=== PATIENT | male | born 1980 | race Caucasian/White ===

== ENCOUNTER 2021-02-25 19:05 | Inpatient (IN) | payer OTHER ==
[2021-02-25] MEDS ORDERED: MAGNESIUM CITRATE 300 ML BOTTLE PO PRN (22:39)
[2021-02-25] MEDS ORDERED: MAGNESIUM HYDROX 2400MG/30ML ORAL SUSPENSION 30 ML CUP PO PRN (22:39)
[2021-02-25] MEDS ORDERED: P-EPHED 60MG/TRIPROLIDI 2.5MG TABLET PO PRN (22:39)
[2021-02-25] MEDS ORDERED: ACETAMINOPHEN 325 MG TABLET (FP) PO PRN ×2 (22:39)
[2021-02-25] MEDS ORDERED: MENTHOL/PHENOL 1 EACH UD MM PRN (22:39)
[2021-02-25] MEDS ORDERED: BISMUTH SUBSALICYLATE 524 MG/30 ML PO PRN (22:39)
[2021-02-25] MEDS ORDERED: NALOXONE HCL 0.4 MG/ML VIAL IM PRN (22:39)
[2021-02-25] MEDS ORDERED: DICYCLOMINE HCL 10 MG CAPSULE PO PRN (22:39)
[2021-02-25] MEDS ORDERED: ONDANSETRON *ODT* 4 MG TABLET SL PRN (22:39)
[2021-02-25] MEDS ORDERED: NICOTINE 10 MG CARTRIDGE (INHALER) IH PRN (22:39)
[2021-02-25] MEDS ORDERED: MAG HYDROX/AL HYDROX/SIMETH 30 ML UNIT-DOSE CUP PO PRN (22:39)
[2021-02-25] MEDS ORDERED: IBUPROFEN 400 MG TABLET (FP) PO PRN (22:39)
[2021-02-25] MEDS ORDERED: guaiFENesin 200 MG/10 ML 10 ML UNIT-DOSE CUPS PO PRN (22:39)
[2021-02-25] MEDS ORDERED: NALOXONE (NARCAN) HCL 4 MG/0.1 ML SPRAY NS PRN (22:39)
[2021-02-26] MEDS ORDERED: methaDONE HCL 10 MG TABLET (FOR DETOX USE ONLY) PO ONE ×2 (05:21→10:00)
[2021-02-26] MEDS ORDERED: clonazePAM 0.5 MG ODT TABLETS SL PRN (05:21)
[2021-02-26 05:27] VITALS: BMI 20.9
[2021-02-26] MEDS: NICOTINE 14 MG/24 HOURS TOPICAL PATCH TD SCH (09:41)
[2021-02-26] MEDS: PRENATAL VITAMINS W/ FOLIC ACID TABLET (FP) PO SCH (09:41)
[2021-02-26 11:01] LABS: HEMATOCRIT 37.7 % (35.4-49); HEMOGLOBIN 12.5 GM/dL (11.7-16.9); MCH 28.7 pg (25.7-33.7); MCHC 33.2 g/dl (32.0-35.9); MEAN CELL VOLUME 86.6 fl (80-96); MEAN PLT VOLUME 9.5 fl (7.5-11.1); PLATELET COUNT 361 10^3/uL (134-434); RBC 4.35 M/mm3 (4.00-5.60); RDW 15.5 % (11.9-15.9); WHITE BLOOD COUNT 7.6 K/mm3 (4.0-10.0)
[2021-02-26 11:12] LABS: ALBUMIN 2.8 g/dl (3.4-5.0); BLOOD UREA NITROGEN 12.1 mg/dL (7-18)
[2021-02-26 11:14] LABS: CREATININE 0.8 mg/dL (0.55-1.3)
[2021-02-26 11:16] LABS: BILIRUBIN,TOTAL 0.5 mg/dL (0.2-1); TOT PROT 7.1 g/dl (6.4-8.2)
[2021-02-26] MEDS ORDERED: MELATONIN 5 MG TABLETS PO SCH (22:00)
[2021-02-26] MEDS: THIAMINE HCL 100 MG TABLET (FP) PO SCH (22:06)
[2021-02-26] MEDS: MELATONIN 5 MG TABLETS PO SCH (22:06)
[2021-02-26] MEDS: cloNIDine HCL 0.1 MG TABLET PO PRN (22:06)
[2021-02-27] MEDS: cloNIDine HCL 0.1 MG TABLET PO PRN (03:02)
[2021-02-27] MEDS ORDERED: methaDONE HCL 10 MG TABLET (FOR DETOX USE ONLY) ONE (09:01)
[2021-02-27] MEDS: PRENATAL VITAMINS W/ FOLIC ACID TABLET (FP) PO SCH (10:23)
[2021-02-27] MEDS: NICOTINE 14 MG/24 HOURS TOPICAL PATCH TD SCH (10:25)
[2021-02-27] MEDS: diazePAM 5 MG TABLET PO PRN ×3 (10:27→22:20)
[2021-02-27] MEDS: THIAMINE HCL 100 MG TABLET (FP) PO SCH (22:20)
[2021-02-27] MEDS: MELATONIN 5 MG TABLETS PO SCH (22:21)
[2021-02-28] MEDS ORDERED: methaDONE HCL 10 MG TABLET (FOR DETOX USE ONLY) PO ONE (10:00)
[2021-02-28] MEDS: PRENATAL VITAMINS W/ FOLIC ACID TABLET (FP) PO SCH (10:15)
[2021-02-28] MEDS: diazePAM 5 MG TABLET PO PRN ×3 (10:17→22:24)
[2021-02-28] MEDS: NICOTINE 14 MG/24 HOURS TOPICAL PATCH TD SCH (10:19)
[2021-02-28 14:33] LABS: BLOOD UREA NITROGEN 10.7 mg/dL (7-18); CALCIUM 9.2 mg/dL (8.5-10.1)
[2021-02-28 14:36] LABS: CREATININE 0.8 mg/dL (0.55-1.3)
[2021-02-28 14:38] LABS: BILIRUBIN,TOTAL 0.7 mg/dL (0.2-1); TOT PROT 8.1 g/dl (6.4-8.2)
[2021-02-28 14:42] LABS: INR 1.1 (0.83-1.09); PROTHROMBIN TIME (PATIENT) 13.5 SEC (9.7-13.0)
[2021-02-28] MEDS: METHOCARBAMOL 500 MG TABLET PO PRN (16:23)
[2021-02-28] MEDS: cloNIDine HCL 0.1 MG TABLET PO PRN (16:23)
[2021-02-28] MEDS: THIAMINE HCL 100 MG TABLET (FP) PO SCH (22:24)
[2021-02-28] MEDS: MELATONIN 5 MG TABLETS PO SCH (22:25)
[2021-03-01] MEDS ORDERED: methaDONE HCL 10 MG TABLET (FOR DETOX USE ONLY) ONE (08:39)
[2021-03-01] MEDS: diazePAM 5 MG TABLET PO PRN (08:40)
[2021-03-01] MEDS: METHOCARBAMOL 500 MG TABLET PO PRN (08:41)
[2021-03-01] MEDS: PRENATAL VITAMINS W/ FOLIC ACID TABLET (FP) PO SCH (08:59)
[2021-03-01 09:19] VITALS: BP 104/57; PULSE 101; TEMP 97.3
[2021-03-02] MEDS ORDERED: methaDONE HCL 10 MG TABLET (FOR DETOX USE ONLY) PO ONE (10:00)
== END 2021-03-01 09:01 | disposition left against medical advice (07) | DRG 770 ==
LOC: YASAS 19:05 → Y6N 23:06
PROVIDERS: ADMIT Allergy & Immunology; ATTEND Allergy & Immunology
PROC: HZ2ZZZZ Detoxification Services for Substance Abuse Treatment (ICD-10-PCS; principal; 2021-02-25)
DX: F11.23 Opioid dependence with withdrawal (principal); F10.20 Alcohol dependence, uncomplicated; F14.20 Cocaine dependence, uncomplicated; F12.20 Cannabis dependence, uncomplicated; F15.10 Other stimulant abuse, uncomplicated; F17.210 Nicotine dependence, cigarettes, uncomplicated; F19.282 Other psychoactive substance dependence with psychoactive substance-induced sleep disorder; F19.24 Other psychoactive substance dependence with psychoactive substance-induced mood disorder; F19.259 Other psychoactive substance dependence with psychoactive substance-induced psychotic disorder, unspecified; R74.01 Elevation of levels of liver transaminase levels; Z56.0 Unemployment, unspecified; Z59.0 Homelessness
CPT/HCPCS: 36415; 80053; 82947; 85027; 85610; 86780; 93005; 93010; C9803; J0735; U0003; U0005

== ENCOUNTER 2021-10-08 17:19 | Inpatient (IN) | payer OTHER ==
[2021-10-08 18:29] VITALS: BMI 20.2
[2021-10-08] MEDS ORDERED: ONDANSETRON *ODT* 4 MG TABLET SL PRN (19:14)
[2021-10-08] MEDS ORDERED: MAGNESIUM HYDROX 2400MG/30ML ORAL SUSPENSION 30 ML CUP PO PRN (19:14)
[2021-10-08] MEDS ORDERED: DICYCLOMINE HCL 10 MG CAPSULE PO PRN (19:14)
[2021-10-08] MEDS ORDERED: BENZOCAINE/MENTHOL (CHLORASEPTIC ) LOZENGE MM PRN (19:14)
[2021-10-08] MEDS ORDERED: MAG HYDROX/AL HYDROX/SIMETH 30 ML UNIT-DOSE CUP PO PRN (19:14)
[2021-10-08] MEDS ORDERED: LOPERAMIDE HCL 2 MG CAPSULE PO PRN (19:14)
[2021-10-08] MEDS ORDERED: BISMUTH SUBSALICYLATE 524 MG/30 ML PO PRN (19:14)
[2021-10-08] MEDS ORDERED: ACETAMINOPHEN 325 MG TABLET (FP) PO PRN ×2 (19:14)
[2021-10-08] MEDS ORDERED: MAGNESIUM CITRATE 300 ML BOTTLE PO PRN (19:14)
[2021-10-08] MEDS ORDERED: NICOTINE 10 MG CARTRIDGE (INHALER) IH PRN (19:14)
[2021-10-08] MEDS: THIAMINE HCL 100 MG TABLET (FP) PO SCH (23:16)
[2021-10-08] MEDS: MELATONIN 5 MG TABLETS PO SCH (23:16)
[2021-10-09] MEDS: METHOCARBAMOL 500 MG TABLET PO PRN (07:22)
[2021-10-09 09:47] LABS: HEMATOCRIT 37.6 % (35.4-49); HEMOGLOBIN 12.9 GM/dL (11.7-16.9); MCH 30.3 pg (25.7-33.7); MCHC 34.2 g/dl (32.0-35.9); MEAN CELL VOLUME 88.6 fl (80-96); MEAN PLT VOLUME 8.5 fl (7.5-11.1); PLATELET COUNT 394 10^3/uL (134-434); RBC 4.24 M/mm3 (4.00-5.60); RDW 13.7 % (11.9-15.9); WHITE BLOOD COUNT 8.6 K/mm3 (4.0-10.0)
[2021-10-09] MEDS ORDERED: cloNIDine HCL 0.1 MG TABLET PO PRN (09:48)
[2021-10-09] MEDS ORDERED: methaDONE HCL 10 MG TABLET (FOR DETOX USE ONLY) PO ONE (10:15)
[2021-10-09] MEDS: PRENATAL VITAMINS W/ FOLIC ACID TABLET (FP) PO SCH (10:16)
[2021-10-09] MEDS: NICOTINE 14 MG/24 HOURS TOPICAL PATCH TD SCH (10:16)
[2021-10-09 10:22] LABS: ALBUMIN 2.9 g/dl (3.4-5.0); BLOOD UREA NITROGEN 16.2 mg/dL (7-18)
[2021-10-09 10:24] LABS: CREATININE 0.8 mg/dL (0.55-1.3)
[2021-10-09 10:26] LABS: BILIRUBIN,TOTAL 0.3 mg/dL (0.2-1); TOT PROT 7.3 g/dl (6.4-8.2)
[2021-10-09] MEDS: diazePAM 5 MG TABLET PO SCH ×3 (11:06→22:51)
[2021-10-09] MEDS: MELATONIN 5 MG TABLETS PO SCH (22:51)
[2021-10-09] MEDS: THIAMINE HCL 100 MG TABLET (FP) PO SCH (22:51)
[2021-10-10] MEDS: diazePAM 5 MG TABLET PO PRN (04:16)
[2021-10-10] MEDS: IBUPROFEN 400 MG TABLET (FP) PO PRN (04:17)
[2021-10-10] MEDS: METHOCARBAMOL 500 MG TABLET PO PRN (04:17)
[2021-10-10] MEDS: diazePAM 5 MG TABLET PO SCH ×4 (06:43→22:53)
[2021-10-10] MEDS ORDERED: methaDONE HCL 10 MG TABLET (FOR DETOX USE ONLY) ONE (09:32)
[2021-10-10] MEDS: NICOTINE 14 MG/24 HOURS TOPICAL PATCH TD SCH (10:44)
[2021-10-10] MEDS: PRENATAL VITAMINS W/ FOLIC ACID TABLET (FP) PO SCH (10:44)
[2021-10-10 11:04] LABS: BLOOD UREA NITROGEN 9.9 mg/dL (7-18); CALCIUM 9.1 mg/dL (8.5-10.1)
[2021-10-10 11:09] LABS: BILIRUBIN,TOTAL 0.5 mg/dL (0.2-1); TOT PROT 7.7 g/dl (6.4-8.2)
[2021-10-10 11:10] LABS: CREATININE 0.7 mg/dL (0.55-1.3)
[2021-10-10 14:08] LABS: SARS-CoV-2 NAA Not Detected (Not Detected)
[2021-10-10] MEDS: MELATONIN 5 MG TABLETS PO SCH (22:52)
[2021-10-10] MEDS: THIAMINE HCL 100 MG TABLET (FP) PO SCH (22:53)
[2021-10-11] MEDS: diazePAM 5 MG TABLET PO PRN (01:50)
[2021-10-11] MEDS: METHOCARBAMOL 500 MG TABLET PO PRN (01:51)
[2021-10-11] MEDS: IBUPROFEN 400 MG TABLET (FP) PO PRN (01:51)
[2021-10-11] MEDS: diazePAM 5 MG TABLET PO SCH ×3 (06:24→22:11)
[2021-10-11] MEDS ORDERED: methaDONE HCL 10 MG TABLET (FOR DETOX USE ONLY) PO ONE (10:00)
[2021-10-11] MEDS: NICOTINE 14 MG/24 HOURS TOPICAL PATCH TD SCH (10:37)
[2021-10-11] MEDS: PRENATAL VITAMINS W/ FOLIC ACID TABLET (FP) PO SCH (10:37)
[2021-10-11] MEDS: THIAMINE HCL 100 MG TABLET (FP) PO SCH (22:10)
[2021-10-11] MEDS: MELATONIN 5 MG TABLETS PO SCH (22:10)
[2021-10-12] MEDS: METHOCARBAMOL 500 MG TABLET PO PRN (06:00)
[2021-10-12] MEDS ORDERED: diazePAM 5 MG TABLET PO SCH (06:00)
[2021-10-12] MEDS: IBUPROFEN 400 MG TABLET (FP) PO PRN (06:01)
[2021-10-12 09:04] VITALS: BP 135/75; PULSE 97; TEMP 97.3
[2021-10-12] MEDS ORDERED: methaDONE HCL 10 MG TABLET (FOR DETOX USE ONLY) ONE (09:18)
[2021-10-12] MEDS: PRENATAL VITAMINS W/ FOLIC ACID TABLET (FP) PO SCH (09:49)
[2021-10-12] MEDS: NICOTINE 14 MG/24 HOURS TOPICAL PATCH TD SCH (09:49)
[2021-10-12 11:22] LABS: SGOT/AST 95 U/L (15-37); SGPT/ALT 222 U/L (13-61)
[2021-10-13] MEDS ORDERED: diazePAM 5 MG TABLET PO ONE (06:00)
[2021-10-13] MEDS ORDERED: methaDONE HCL 10 MG TABLET (FOR DETOX USE ONLY) PO ONE (10:00)
== END 2021-10-12 11:05 | disposition left against medical advice (07) | DRG 770 ==
LOC: YASAS 17:19 → Y3N 19:40
PROVIDERS: ADMIT Allergy & Immunology; ATTEND Allergy & Immunology
PROC: HZ2ZZZZ Detoxification Services for Substance Abuse Treatment (ICD-10-PCS; principal; 2021-10-08)
DX: F11.23 Opioid dependence with withdrawal (principal); F10.20 Alcohol dependence, uncomplicated; F14.20 Cocaine dependence, uncomplicated; F12.20 Cannabis dependence, uncomplicated; F17.210 Nicotine dependence, cigarettes, uncomplicated; F20.9 Schizophrenia, unspecified; F19.24 Other psychoactive substance dependence with psychoactive substance-induced mood disorder; F41.9 Anxiety disorder, unspecified; F32.A Depression, unspecified; R74.01 Elevation of levels of liver transaminase levels; Z28.310 Unvaccinated for COVID-19
CPT/HCPCS: 36415; 80053; 84450; 84460; 85027; 86780; 87811; 93005; 93010; C9803-CS; U0003; U0005

== ENCOUNTER 2021-11-13 15:28 | Inpatient (IN) | payer OTHER ==
[2021-11-13 16:08] VITALS: BMI 28.2
[2021-11-13] MEDS ORDERED: IBUPROFEN 400 MG TABLET (FP) PO PRN (18:48)
[2021-11-13] MEDS ORDERED: methaDONE HCL 10 MG TABLET (FOR DETOX USE ONLY) PO ONE (18:48)
[2021-11-13] MEDS ORDERED: MAG HYDROX/AL HYDROX/SIMETH 30 ML UNIT-DOSE CUP PO PRN (18:48)
[2021-11-13] MEDS ORDERED: DICYCLOMINE HCL 10 MG CAPSULE PO PRN (18:48)
[2021-11-13] MEDS ORDERED: MAGNESIUM HYDROX 2400MG/30ML ORAL SUSPENSION 30 ML CUP PO PRN (18:48)
[2021-11-13] MEDS ORDERED: MAGNESIUM CITRATE 300 ML BOTTLE PO PRN (18:48)
[2021-11-13] MEDS ORDERED: BISMUTH SUBSALICYLATE 524 MG/30 ML PO PRN (18:48)
[2021-11-13] MEDS ORDERED: LOPERAMIDE HCL 2 MG CAPSULE PO PRN (18:48)
[2021-11-13] MEDS ORDERED: ACETAMINOPHEN 325 MG TABLET (FP) PO PRN ×2 (18:48)
[2021-11-13] MEDS ORDERED: BENZOCAINE/MENTHOL (CHLORASEPTIC ) LOZENGE MM PRN (18:48)
[2021-11-13] MEDS ORDERED: IBUPROFEN 600 MG TABLET (FP) PO PRN (18:48)
[2021-11-13] MEDS ORDERED: NICOTINE 10 MG CARTRIDGE (INHALER) IH PRN (18:48)
[2021-11-14] MEDS: THIAMINE HCL 100 MG TABLET (FP) PO SCH ×2 (01:36→23:14)
[2021-11-14] MEDS: MELATONIN 5 MG TABLETS PO SCH ×2 (01:37→23:14)
[2021-11-14] MEDS: PRENATAL VITAMINS W/ FOLIC ACID TABLET (FP) PO SCH (10:31)
[2021-11-14] MEDS: NICOTINE 7 MG/24 HOURS TOPICAL PATCH TD SCH (10:31)
[2021-11-14] MEDS: cloNIDine HCL 0.1 MG TABLET PO PRN (11:41)
[2021-11-14] MEDS: METHOCARBAMOL 500 MG TABLET PO PRN ×2 (11:41→23:15)
[2021-11-14 13:00] LABS: HEMATOCRIT 36.9 % (35.4-49); HEMOGLOBIN 12.2 GM/dL (11.7-16.9); MCH 29.3 pg (25.7-33.7); MCHC 33.1 g/dl (32.0-35.9); MEAN CELL VOLUME 88.4 fl (80-96); MEAN PLT VOLUME 8.7 fl (7.5-11.1); PLATELET COUNT 331 10^3/uL (134-434); RBC 4.17 M/mm3 (4.00-5.60); RDW 14.3 % (11.9-15.9); WHITE BLOOD COUNT 7.1 K/mm3 (4.0-10.0)
[2021-11-14 13:28] LABS: BLOOD UREA NITROGEN 10.6 mg/dL (7-18); CALCIUM 8.9 mg/dL (8.5-10.1)
[2021-11-14 13:29] LABS: ALBUMIN 2.8 g/dl (3.4-5.0)
[2021-11-14 13:31] LABS: CREATININE 0.8 mg/dL (0.55-1.3)
[2021-11-14 13:33] LABS: BILIRUBIN,TOTAL 0.2 mg/dL (0.2-1); TOT PROT 7.2 g/dl (6.4-8.2)
[2021-11-15] MEDS: cloNIDine HCL 0.1 MG TABLET PO PRN (06:42)
[2021-11-15] MEDS: METHOCARBAMOL 500 MG TABLET PO PRN (06:42)
[2021-11-15] MEDS ORDERED: cloNIDine HCL 0.1 MG TABLET PO PRN (09:34)
[2021-11-15] MEDS ORDERED: methaDONE HCL 10 MG TABLET (FOR DETOX USE ONLY) PO ONE ×2 (09:34→10:00)
[2021-11-15] MEDS: PRENATAL VITAMINS W/ FOLIC ACID TABLET (FP) PO SCH (10:43)
[2021-11-15] MEDS: NICOTINE 7 MG/24 HOURS TOPICAL PATCH TD SCH (10:44)
[2021-11-15] MEDS: THIAMINE HCL 100 MG TABLET (FP) PO SCH (22:50)
[2021-11-15] MEDS: MELATONIN 5 MG TABLETS PO SCH (22:50)
[2021-11-16] MEDS ORDERED: methaDONE HCL 10 MG TABLET (FOR DETOX USE ONLY) ONE (10:03)
[2021-11-16] MEDS: METHOCARBAMOL 500 MG TABLET PO PRN ×2 (10:45→22:46)
[2021-11-16] MEDS: NICOTINE 7 MG/24 HOURS TOPICAL PATCH TD SCH (10:46)
[2021-11-16] MEDS: PRENATAL VITAMINS W/ FOLIC ACID TABLET (FP) PO SCH (10:46)
[2021-11-16] MEDS: MELATONIN 5 MG TABLETS PO SCH (22:46)
[2021-11-16] MEDS: THIAMINE HCL 100 MG TABLET (FP) PO SCH (22:46)
[2021-11-17 08:46] VITALS: BP 124/68; PULSE 73; TEMP 98.3
[2021-11-17] MEDS ORDERED: methaDONE HCL 10 MG TABLET (FOR DETOX USE ONLY) PO ONE ×2 (10:00)
[2021-11-17] MEDS ORDERED: diazePAM 5 MG TABLET PO PRN (10:56)
[2021-11-19] MEDS ORDERED: methaDONE HCL 10 MG TABLET (FOR DETOX USE ONLY) PO ONE (10:00)
== END 2021-11-17 11:14 | disposition home or self-care (01) | DRG 773 ==
LOC: YASAS 15:28 → UNDOADMIN 23:26 → Y6N 23:26 → Y3N 11-14 03:48
PROVIDERS: ADMIT Allergy & Immunology; ATTEND Surgery
PROC: HZ2ZZZZ Detoxification Services for Substance Abuse Treatment (ICD-10-PCS; principal; 2021-11-13)
DX: F11.23 Opioid dependence with withdrawal (principal); F10.20 Alcohol dependence, uncomplicated; F14.20 Cocaine dependence, uncomplicated; F12.20 Cannabis dependence, uncomplicated; F17.210 Nicotine dependence, cigarettes, uncomplicated; F19.24 Other psychoactive substance dependence with psychoactive substance-induced mood disorder; F20.9 Schizophrenia, unspecified; F41.9 Anxiety disorder, unspecified; F32.A Depression, unspecified; U07.1 COVID-19; Z28.310 Unvaccinated for COVID-19; Z59.00 Homelessness unspecified
CPT/HCPCS: 36415; 80053; 85027; 86780; C9803-CS; J0735; U0003; U0005

== ENCOUNTER 2021-12-10 12:25 | Inpatient (IN) | payer OTHER ==
[2021-12-10 13:54] VITALS: BMI 19.6
[2021-12-10] MEDS ORDERED: LOPERAMIDE HCL 2 MG CAPSULE PO PRN (14:17)
[2021-12-10] MEDS ORDERED: MAG HYDROX/AL HYDROX/SIMETH 30 ML UNIT-DOSE CUP PO PRN (14:17)
[2021-12-10] MEDS ORDERED: BISMUTH SUBSALICYLATE 262 MG/15 ML BTL PO PRN (14:17)
[2021-12-10] MEDS ORDERED: NICOTINE 10 MG CARTRIDGE (INHALER) IH PRN (14:17)
[2021-12-10] MEDS ORDERED: DICYCLOMINE HCL 10 MG CAPSULE PO PRN (14:17)
[2021-12-10] MEDS ORDERED: MAGNESIUM CITRATE 300 ML BOTTLE PO PRN (14:17)
[2021-12-10] MEDS ORDERED: BENZOCAINE/MENTHOL (CHLORASEPTIC ) LOZENGE MM PRN (14:17)
[2021-12-10] MEDS ORDERED: MAGNESIUM HYDROX 2400MG/30ML ORAL SUSPENSION 30 ML CUP PO PRN (14:17)
[2021-12-10] MEDS ORDERED: METHOCARBAMOL 500 MG TABLET PO PRN (14:17)
[2021-12-10] MEDS ORDERED: NALOXONE HCL (KLOXXADO) 8 MG SPRAY NS PRN (14:17)
[2021-12-10] MEDS ORDERED: IBUPROFEN 400 MG TABLET (FP) PO PRN (14:17)
[2021-12-10] MEDS ORDERED: cloNIDine HCL 0.1 MG TABLET PO PRN (14:17)
[2021-12-10] MEDS ORDERED: methaDONE HCL 10 MG TABLET (FOR DETOX USE ONLY) PO ONE (14:17)
[2021-12-10] MEDS ORDERED: IBUPROFEN 600 MG TABLET (FP) PO PRN (14:17)
[2021-12-10] MEDS ORDERED: chlordiazePOXIDE HCL 25 MG CAPSULE PO PRN (14:17)
[2021-12-10] MEDS ORDERED: ONDANSETRON *ODT* 4 MG TABLET SL PRN (14:17)
[2021-12-10] MEDS ORDERED: ACETAMINOPHEN 325 MG TABLET (FP) PO PRN ×2 (14:17)
[2021-12-10] MEDS: NICOTINE 14 MG/24 HOURS TOPICAL PATCH TD SCH (15:00)
[2021-12-10] MEDS: PRENATAL VITAMINS W/ FOLIC ACID TABLET (FP) PO SCH (15:01)
[2021-12-10 17:32] LABS: HEMATOCRIT 35.6 % (35.4-49); HEMOGLOBIN 11.9 GM/dL (11.7-16.9); MCH 29.8 pg (25.7-33.7); MCHC 33.5 g/dl (32.0-35.9); MEAN CELL VOLUME 88.7 fl (80-96); MEAN PLT VOLUME 8.5 fl (7.5-11.1); PLATELET COUNT 388 10^3/uL (134-434); RBC 4.01 M/mm3 (4.00-5.60); RDW 14.6 % (11.9-15.9); WHITE BLOOD COUNT 9.3 K/mm3 (4.0-10.0)
[2021-12-10 17:43] LABS: CALCIUM 8.8 mg/dL (8.5-10.1)
[2021-12-10 17:44] LABS: ALBUMIN 3.1 g/dl (3.4-5.0); BLOOD UREA NITROGEN 12.1 mg/dL (7-18)
[2021-12-10 17:47] LABS: CREATININE 0.8 mg/dL (0.55-1.3)
[2021-12-10 17:48] LABS: BILIRUBIN,TOTAL 0.5 mg/dL (0.2-1); TOT PROT 7.3 g/dl (6.4-8.2)
[2021-12-10] MEDS: hydrOXYzine PAMOATE 25 MG CAPSULE (FP) PO SCH ×2 (18:08→23:26)
[2021-12-10] MEDS: MELATONIN 5 MG TABLETS PO SCH (23:26)
[2021-12-10] MEDS: THIAMINE HCL 100 MG TABLET (FP) PO SCH (23:26)
[2021-12-10] MEDS: chlordiazePOXIDE HCL 25 MG CAPSULE PO SCH (23:35)
[2021-12-11] MEDS: hydrOXYzine PAMOATE 25 MG CAPSULE (FP) PO SCH ×5 (07:23→22:20)
[2021-12-11] MEDS: chlordiazePOXIDE HCL 25 MG CAPSULE PO SCH ×2 (07:23→10:34)
[2021-12-11] MEDS ORDERED: methaDONE HCL 10 MG TABLET (FOR DETOX USE ONLY) ONE (09:05)
[2021-12-11] MEDS: PRENATAL VITAMINS W/ FOLIC ACID TABLET (FP) PO SCH (10:34)
[2021-12-11] MEDS: NICOTINE 14 MG/24 HOURS TOPICAL PATCH TD SCH (10:35)
[2021-12-11] MEDS ORDERED: LORazepam 1 MG TABLET PO PRN (11:11)
[2021-12-11] MEDS: LORazepam 2 MG TABLET PO SCH ×2 (17:37→22:20)
[2021-12-11] MEDS: THIAMINE HCL 100 MG TABLET (FP) PO SCH (22:20)
[2021-12-11] MEDS: MELATONIN 5 MG TABLETS PO SCH (22:20)
[2021-12-12] MEDS ORDERED: chlordiazePOXIDE HCL 25 MG CAPSULE PO SCH (05:00)
[2021-12-12] MEDS: LORazepam 2 MG TABLET PO SCH ×4 (05:49→22:41)
[2021-12-12] MEDS: hydrOXYzine PAMOATE 25 MG CAPSULE (FP) PO SCH ×5 (05:50→22:41)
[2021-12-12] MEDS ORDERED: methaDONE HCL 10 MG TABLET (FOR DETOX USE ONLY) PO ONE (10:00)
[2021-12-12] MEDS: PRENATAL VITAMINS W/ FOLIC ACID TABLET (FP) PO SCH (10:30)
[2021-12-12] MEDS: NICOTINE 14 MG/24 HOURS TOPICAL PATCH TD SCH (10:30)
[2021-12-12 10:35] LABS: ALBUMIN 3.3 g/dl (3.4-5.0); CALCIUM 9.1 mg/dL (8.5-10.1)
[2021-12-12 10:38] LABS: CREATININE 0.7 mg/dL (0.55-1.3)
[2021-12-12 10:40] LABS: BILIRUBIN,TOTAL 0.7 mg/dL (0.2-1)
[2021-12-12] MEDS: MELATONIN 5 MG TABLETS PO SCH (22:41)
[2021-12-12] MEDS: THIAMINE HCL 100 MG TABLET (FP) PO SCH (22:41)
[2021-12-13] MEDS ORDERED: chlordiazePOXIDE HCL 10 MG CAPSULE PO PRN
[2021-12-13] MEDS ORDERED: chlordiazePOXIDE HCL 10 MG CAPSULE PO SCH (05:00)
[2021-12-13] MEDS: LORazepam 1 MG TABLET PO SCH ×4 (06:09→22:27)
[2021-12-13] MEDS: hydrOXYzine PAMOATE 25 MG CAPSULE (FP) PO SCH ×5 (06:09→22:27)
[2021-12-13] MEDS ORDERED: methaDONE HCL 10 MG TABLET (FOR DETOX USE ONLY) ONE (08:56)
[2021-12-13] MEDS: NICOTINE 14 MG/24 HOURS TOPICAL PATCH TD SCH (10:42)
[2021-12-13] MEDS: PRENATAL VITAMINS W/ FOLIC ACID TABLET (FP) PO SCH (10:42)
[2021-12-13] MEDS: MELATONIN 5 MG TABLETS PO SCH (22:27)
[2021-12-13] MEDS: THIAMINE HCL 100 MG TABLET (FP) PO SCH (22:27)
[2021-12-14] MEDS ORDERED: LORazepam 0.5 MG TABLET PO PRN
[2021-12-14] MEDS ORDERED: chlordiazePOXIDE HCL 10 MG CAPSULE PO SCH (05:00)
[2021-12-14] MEDS ORDERED: LORazepam 0.5 MG TABLET PO SCH (05:00)
[2021-12-14] MEDS: hydrOXYzine PAMOATE 25 MG CAPSULE (FP) PO SCH (05:32)
[2021-12-14 09:23] VITALS: BP 117/60; PULSE 88; TEMP 98.6
[2021-12-14] MEDS ORDERED: methaDONE HCL 10 MG TABLET (FOR DETOX USE ONLY) PO ONE (10:00)
[2021-12-15] MEDS ORDERED: LORazepam 0.5 MG TABLET PO ONE (05:00)
[2021-12-15] MEDS ORDERED: chlordiazePOXIDE HCL 10 MG CAPSULE PO ONE (05:00)
== END 2021-12-14 12:49 | disposition home or self-care (01) | DRG 773 ==
LOC: YASAS 12:25 → Y3N 14:08
PROVIDERS: ADMIT Allergy & Immunology; ATTEND Surgery
PROC: HZ2ZZZZ Detoxification Services for Substance Abuse Treatment (ICD-10-PCS; principal; 2021-12-10)
DX: F11.23 Opioid dependence with withdrawal (principal); F10.20 Alcohol dependence, uncomplicated; F14.20 Cocaine dependence, uncomplicated; F12.20 Cannabis dependence, uncomplicated; F17.210 Nicotine dependence, cigarettes, uncomplicated; F19.282 Other psychoactive substance dependence with psychoactive substance-induced sleep disorder; F19.24 Other psychoactive substance dependence with psychoactive substance-induced mood disorder; F20.9 Schizophrenia, unspecified; F41.9 Anxiety disorder, unspecified; R74.8 Abnormal levels of other serum enzymes; R74.01 Elevation of levels of liver transaminase levels; W06.XXXA Fall from bed, initial encounter; Y92.230 Patient room in hospital as the place of occurrence of the external cause; Z28.310 Unvaccinated for COVID-19; Z59.00 Homelessness unspecified
CPT/HCPCS: 36415; 80053; 82962; 85027; 86780; C9803-CS; U0003; U0005

== ENCOUNTER 2023-07-13 14:24 | Inpatient (IN) | payer OTHER ==
[2023-07-13 15:17] VITALS: BMI 20.9
[2023-07-13] MEDS ORDERED: PERMETHRIN 5% TOPICAL CREAM 60 GM TUBE ONE (16:41)
[2023-07-13] MEDS ORDERED: ACETAMINOPHEN 325 MG TABLET (FP) PO PRN (19:32)
[2023-07-13] MEDS ORDERED: DICYCLOMINE HCL 10 MG CAPSULE PO PRN (19:32)
[2023-07-13] MEDS ORDERED: POLYETHYLENE GLYCOL (HEALTHYLAX) 3350 17 GM PACKET PO PRN (19:32)
[2023-07-13] MEDS ORDERED: BENZOCAINE/MENTHOL (CHLORASEPTIC ) LOZENGE MM PRN (19:32)
[2023-07-13] MEDS ORDERED: IBUPROFEN 400 MG TABLET (FP) PO PRN (19:32)
[2023-07-13] MEDS ORDERED: BISMUTH SUBSALICYLATE 524 MG/30 ML PO PRN (19:32)
[2023-07-13] MEDS ORDERED: NALOXONE HCL 0.4 MG/ML VIAL IM PRN (19:32)
[2023-07-13] MEDS ORDERED: guaiFENesin 600 MG TABLET.ER (FP) PO PRN (19:32)
[2023-07-13] MEDS ORDERED: BENZONATATE 200 MG CAPSULE PO PRN (19:32)
[2023-07-13] MEDS ORDERED: LOPERAMIDE HCL 2 MG CAPSULE PO PRN (19:32)
[2023-07-13] MEDS ORDERED: MAG HYDROX/AL HYDROX/SIMETH 30 ML UNIT-DOSE CUP PO PRN (19:32)
[2023-07-13] MEDS ORDERED: MAGNESIUM HYDROX 2400MG/30ML ORAL SUSPENSION 30 ML CUP PO PRN (19:32)
[2023-07-13] MEDS ORDERED: NALOXONE HCL (KLOXXADO) 8 MG SPRAY NS PRN (19:32)
[2023-07-13] MEDS: PERMETHRIN 5% TOPICAL CREAM 60 GM TUBE TP ONE (19:59)
[2023-07-13] MEDS: MELATONIN 5 MG TABLETS PO SCH (22:48)
[2023-07-13] MEDS: THIAMINE HCL 100 MG TABLET (FP) PO SCH (22:48)
[2023-07-13] MEDS: IBUPROFEN 600 MG TABLET (FP) PO PRN (23:27)
[2023-07-14] MEDS: PRENATAL VITAMINS W/ FOLIC ACID TABLET (FP) PO SCH (10:36)
[2023-07-14 10:57] LABS: CHLORIDE 109 mmol/L (98-107); POTASSIUM 4.5 mmol/L (3.5-5.1); SODIUM 140 mmol/L (136-145)
[2023-07-14 10:59] LABS: HEMATOCRIT 35.8 % (35.4-49); MCH 29.4 pg (25.7-33.7); MCHC 33.6 g/dl (32.0-35.9); MEAN CELL VOLUME 87.5 fl (80-96); PLATELET COUNT 362 10^3/uL (134-434); RBC 4.08 M/mm3 (4.00-5.60); RDW 14.9 % (11.9-15.9); WHITE BLOOD COUNT 8.2 K/mm3 (4.0-10.0)
[2023-07-14 11:05] LABS: ALBUMIN 2.8 g/dl (3.4-5.0); ANION GAP 3 mmol/L (4-13); BLOOD UREA NITROGEN 14.4 mg/dL (7-18); CO2 28 mmol/L (21-32); GLUCOSE,RANDOM 129 mg/dL (74-106)
[2023-07-14 11:08] LABS: CREATININE 0.7 mg/dL (0.55-1.3); SGOT/AST 39 U/L (15-37); SGPT/ALT 68 U/L (13-61)
[2023-07-14 11:09] LABS: BILIRUBIN,TOTAL 0.1 mg/dL (0.2-1); TOT PROT 7.3 g/dl (6.4-8.2)
[2023-07-14 11:11] LABS: ALK PHOS 94 U/L (45-117)
[2023-07-14] MEDS: methaDONE HCL 10 MG TABLET (FOR DETOX USE ONLY) PO ONE (12:30)
[2023-07-14] MEDS: METHOCARBAMOL 500 MG TABLET PO PRN (12:31)
[2023-07-14] MEDS: diazePAM 5 MG TABLET PO PRN (12:33)
[2023-07-14] MEDS: BACITRACIN 0.9 GM PACKET TP SCH (13:47)
[2023-07-14] MEDS: diazePAM 5 MG TABLET PO SCH (17:28)
[2023-07-15] MEDS: hydrOXYzine PAMOATE 25 MG CAPSULE (FP) PO PRN (05:59)
[2023-07-15] MEDS: ONDANSETRON *ODT* 4 MG TABLET SL PRN (17:47)
[2023-07-15] MEDS: cloNIDine HCL 0.1 MG TABLET PO PRN (22:45)
[2023-07-16] MEDS: diazePAM 5 MG TABLET PO SCH (06:11)
[2023-07-16] MEDS: methaDONE HCL 10 MG TABLET (FOR DETOX USE ONLY) PO ONE (10:40)
[2023-07-17] MEDS: diazePAM 5 MG TABLET PO SCH (06:04)
[2023-07-18] MEDS: diazePAM 5 MG TABLET PO ONE (06:20)
[2023-07-18] MEDS: methaDONE HCL 10 MG TABLET (FOR DETOX USE ONLY) PO ONE (10:23)
[2023-07-20 09:18] VITALS: BP 120/72; PULSE 102; RESP 16; TEMP 97.8
== END 2023-07-20 12:09 | disposition other institution (70) | DRG 773 ==
LOC: YASAS 14:24 → Y3N 19:24
PROVIDERS: ADMIT Allergy & Immunology; ATTEND Surgery
PROC: HZ2ZZZZ Detoxification Services for Substance Abuse Treatment (ICD-10-PCS; principal; 2023-07-13)
DX: F11.23 Opioid dependence with withdrawal (principal); F10.230 Alcohol dependence with withdrawal, uncomplicated; F14.20 Cocaine dependence, uncomplicated; F17.210 Nicotine dependence, cigarettes, uncomplicated; F20.9 Schizophrenia, unspecified; F41.9 Anxiety disorder, unspecified; F32.A Depression, unspecified; K21.9 Gastro-esophageal reflux disease without esophagitis; B85.2 Pediculosis, unspecified; Z28.310 Unvaccinated for COVID-19; Z28.9 Immunization not carried out for unspecified reason
CPT/HCPCS: 36415; 80053; 80307; 85027; 86780; 87635; Q0162

== ENCOUNTER 2024-02-13 16:20 | Inpatient (IN) | payer OTHER ==
[2024-02-13 17:03] VITALS: BMI 23.1
[2024-02-13] MEDS ORDERED: guaiFENesin 600 MG TABLET.ER (FP) PO PRN (17:49)
[2024-02-13] MEDS ORDERED: LOPERAMIDE HCL 2 MG CAPSULE PO PRN (17:49)
[2024-02-13] MEDS ORDERED: POLYETHYLENE GLYCOL (HEALTHYLAX) 3350 17 GM PACKET PO PRN (17:49)
[2024-02-13] MEDS ORDERED: MAG HYDROX/AL HYDROX/SIMETH 30 ML UNIT-DOSE CUP PO PRN (17:49)
[2024-02-13] MEDS ORDERED: BENZOCAINE/MENTHOL (CHLORASEPTIC ) LOZENGE MM PRN (17:49)
[2024-02-13] MEDS ORDERED: BISMUTH SUBSALICYLATE 524 MG/30 ML PO PRN (17:49)
[2024-02-13] MEDS ORDERED: ONDANSETRON *ODT* 4 MG TABLET SL PRN (17:49)
[2024-02-13] MEDS ORDERED: ACETAMINOPHEN 325 MG TABLET (FP) PO PRN (17:49)
[2024-02-13] MEDS ORDERED: BENZONATATE 200 MG CAPSULE PO PRN (17:49)
[2024-02-13] MEDS ORDERED: DICYCLOMINE HCL 10 MG CAPSULE PO PRN (17:49)
[2024-02-13] MEDS ORDERED: NALOXONE HCL 0.4 MG/ML VIAL IM PRN (17:49)
[2024-02-13] MEDS ORDERED: IBUPROFEN 400 MG TABLET (FP) PO PRN (17:49)
[2024-02-13] MEDS ORDERED: NALOXONE (NARCAN) HCL 4 MG/0.1 ML SPRAY NS PRN (17:49)
[2024-02-13] MEDS ORDERED: MAGNESIUM HYDROX 2400MG/30ML ORAL SUSPENSION 30 ML CUP PO PRN (17:49)
[2024-02-13] MEDS ORDERED: NICOTINE POLACRILEX 2 MG GUM BUC PRN (17:49)
[2024-02-13] MEDS: MELATONIN 5 MG TABLETS PO SCH (22:25)
[2024-02-13] MEDS: THIAMINE 100 MG TABLET PO SCH (22:25)
[2024-02-13] MEDS: METHOCARBAMOL 500 MG TABLET PO PRN (22:26)
[2024-02-14] MEDS: IBUPROFEN 600 MG TABLET (FP) PO PRN (03:37)
[2024-02-14] MEDS: hydrOXYzine PAMOATE 25 MG CAPSULE (FP) PO PRN (03:37)
[2024-02-14] MEDS: NICOTINE 14 MG/24 HOURS TOPICAL PATCH TD SCH (09:42)
[2024-02-14] MEDS: PRENATAL VITAMINS W/ FOLIC ACID TABLET (FP) PO SCH (09:42)
[2024-02-14] MEDS ORDERED: diazePAM 5 MG TABLET PO SCH (11:00)
[2024-02-14] MEDS: BUPRENORPHINE/NALOXONE 0.5 MG/0.125 MG FILM SL ONE ×2 (12:04→22:48)
[2024-02-14] MEDS: methaDONE HCL 10 MG TABLET (FOR DETOX USE ONLY) PO ONE (12:04)
[2024-02-14] MEDS: diazePAM 5 MG TABLET PO SCH (12:05)
[2024-02-14 12:17] LABS: HEMATOCRIT 34.3 % (35.4-49); HEMOGLOBIN 11.2 GM/dL (11.7-16.9); MCH 27.4 pg (25.7-33.7); MCHC 32.6 g/dl (32.0-35.9); MEAN CELL VOLUME 84.2 fl (80-96); MEAN PLT VOLUME 9.5 fl (7.5-11.1); PLATELET COUNT 356 10^3/uL (134-434); RBC 4.07 M/mm3 (4.00-5.60); RDW 15.2 % (11.9-15.9); WHITE BLOOD COUNT 7.9 K/mm3 (4.0-10.0)
[2024-02-14 12:31] LABS: CHLORIDE 104 mmol/L (98-107); POTASSIUM 4.4 mmol/L (3.5-5.1); SODIUM 136 mmol/L (136-145)
[2024-02-14 12:34] LABS: ANION GAP 4 mmol/L (4-13); CALCIUM 9.2 mg/dL (8.5-10.1); CO2 28 mmol/L (21-32); GLUCOSE,RANDOM 139 mg/dL (74-106)
[2024-02-14 12:35] LABS: ALBUMIN 2.9 g/dl (3.4-5.0); BLOOD UREA NITROGEN 14.6 mg/dL (7-18)
[2024-02-14 12:38] LABS: CREATININE 0.8 mg/dL (0.55-1.3); SGOT/AST 31 U/L (15-37); SGPT/ALT 51 U/L (13-61)
[2024-02-14 12:39] LABS: BILIRUBIN,TOTAL 0.4 mg/dL (0.2-1); TOT PROT 7.8 g/dl (6.4-8.2)
[2024-02-14 12:41] LABS: ALK PHOS 79 U/L (45-117)
[2024-02-14] MEDS: cloNIDine HCL 0.1 MG TABLET PO SCH (13:35)
[2024-02-14] MEDS: diazePAM 5 MG TABLET PO PRN (15:03)
[2024-02-15] MEDS: BUPRENORPHINE/NALOXONE 0.5 MG/0.125 MG FILM SL SCH (10:13)
[2024-02-16] MEDS: diazePAM 5 MG TABLET PO SCH (05:41)
[2024-02-16] MEDS: BUPRENORPHINE/NALOXONE 2 MG/0.5 MG FILM PACKET SL SCH (10:09)
[2024-02-16] MEDS: methaDONE HCL 10 MG TABLET (FOR DETOX USE ONLY) PO ONE (10:10)
[2024-02-17] MEDS: diazePAM 5 MG TABLET PO SCH (05:15)
[2024-02-17] MEDS: BUPRENORPHINE/NALOXONE 4 MG/1 MG FILM PACKET SL SCH (09:44)
[2024-02-17 20:42] VITALS: RESP 16
[2024-02-18] MEDS: diazePAM 5 MG TABLET PO ONE (05:32)
[2024-02-18 09:54] VITALS: BP 113/66; PULSE 74; TEMP 98.9
[2024-02-18] MEDS: methaDONE HCL 10 MG TABLET (FOR DETOX USE ONLY) PO ONE (10:02)
[2024-02-18] MEDS: BUPRENORPHINE/NALOXONE 8 MG/2 MG FILM PACKET SL SCH (10:02)
[2024-02-19] MEDS ORDERED: BUPRENORPHINE/NALOXONE 8 MG/2 MG FILM PACKET SL SCH (10:00)
== END 2024-02-18 11:31 | disposition home or self-care (01) | DRG 773 ==
LOC: YASAS 16:20 → Y3N 18:37
PROVIDERS: ADMIT Allergy & Immunology; ATTEND Surgery
PROC: HZ2ZZZZ Detoxification Services for Substance Abuse Treatment (ICD-10-PCS; principal; 2024-02-13)
DX: F11.23 Opioid dependence with withdrawal (principal); F10.230 Alcohol dependence with withdrawal, uncomplicated; F17.210 Nicotine dependence, cigarettes, uncomplicated; F20.9 Schizophrenia, unspecified; F19.24 Other psychoactive substance dependence with psychoactive substance-induced mood disorder; F41.9 Anxiety disorder, unspecified; Z86.19 Personal history of other infectious and parasitic diseases; Z86.59 Personal history of other mental and behavioral disorders; Z91.199 Patient's noncompliance with other medical treatment and regimen due to unspecified reason
CPT/HCPCS: 36415; 80053; 80305; 80307; 82947; 83036; 85027; 86780; 93005; 93010